=== PATIENT | male | born 1980 | race Caucasian/White ===

== ENCOUNTER 2016-08-03 12:10 | Emergency (ER) | payer OTHER ==
[2016-08-03] MEDS ORDERED: Ketorolac INJ* 60 MG/2 ML VIAL IM ONE (14:16)
[2016-08-03 14:38] VITALS: BP 126/61
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
== END 2016-08-03 14:59 | disposition home or self-care (01) ==
LOC: UCCORT 12:10
DX: M54.5 Low back pain (principal); G89.29 Other chronic pain; G40.909 Epilepsy, unspecified, not intractable, without status epilepticus
CPT/HCPCS: 96372; 99212; G0463; J1885

== ENCOUNTER 2018-02-11 10:58 | Emergency (ER) | payer OTHER ==
--- OUTSIDE RECORDS SUMMARY | 2018-02-11 11:10 | XMS REPORT ---
:1980 External Reference #:[id number] [facility] Address [address], [address] [place] [address] Phone [phone] Care Team Providers Name Role Phone Jensen Vazquez MD Care Team Information Geriatric Assistant Unavailable Jensen Vazquez MD Primary Care Physician Unavailable Payers Type Date Identification Numbers Payment Provider Subscriber Commercial Policy Number: [id number] [employer] Isaiah Neri PayID: [id number] [address] [place] [address] Medigap Part B PayID: [id number] [facility] [address] [place] [address] Problems Date Description Provider Status Onset: 08/21/2013 Spinal stenosis of lumbar region Tracy Herbert RPAC Active Onset: 08/21/2013 Degeneration of lumbar Tracy Herbert RPAC Active intervertebral disc Onset: 07/29/2013 Personality disorder Tracy Herbert RPAC Active Onset: 07/29/2013 Mixed bipolar affective disorder Tracy Herbert RPAC Active Onset: 07/29/2013 Cannabis abuse Tracy Herbert RPAC Active Onset: 07/29/2013 Intermittent explosive outburst Tracy Herbert RPAC Active Onset: 03/13/2011 Tobacco user Tracy Herbert RPAC Active Onset: 03/13/2011 Pilonidal cyst with abscess Tracy Herbert RPAC Active Onset: 01/16/2018 Other seizures Jensen Vazquez MD Active Onset: 01/16/2018 Low back pain Jensen Vazquez MD Active Onset: 01/16/2018 Bipolar disorder Jensen Vazquez MD Active Social History Type Date Description Comments ETOH Use Negative For Denies alcohol use Smoking Heavy tobacco smoker (more than 10 cigarettes/day) Allergies, Adverse Reactions, Alerts Date Description Reaction Status Severity Comments 12/03/2017 Penicillin active 03/13/2011 Penicillins inactive 09/17/2013 Nicotine Contact dermatitis, contact inactive allergy/patch Medications Medication Date Status Form Strength Qnty SIG Indications Ordering Provider Orason 01/16/ Active Capsules 300mg 45caps 1 tab by Other Carbonate 2018 mouth 3 times Provider a day Gabapentin 12/03/ Active Tablets 800mg 120tab 1 tab by Taylor 2018 s mouth four MD Jensen times a day Olanzapine / Active Tablets 2.5mg Take One Unknown 0000 Tablet By Mouth Every Day as Needed No Active 12/03/ Hx Unknown Medications 2018 - 2017 Gabapentin 12/03/ Hx Tablets 800mg 90tabs 1 by mouth Taylor 2018 - qid MD Jensen 2017 Seroquel 12/03/ Hx Tablets 25mg 60tabs 1 by mouth Taylor 2018 - one hour MD Jensen 01/16/ to 2017 sleep, if no improvement in 3 days may try two by mouth as needed up to 4 at night takes 2 a n Omeprazole 10/20/ Hx Capsules 20mg 30caps 1 cap by Pat Solis - DR mouth every Luz Elena 12/03/ day MD va 2017 nausea Tramadol HCL 07/29/ Hx Tablets 50mg 120tab take 2 Irma 2013 - s tablets by Luz Elena 12/03/ mouth in in MD 2017 the morning and at night as needed for pain Reference #: [id number] Fluoxetine / Hx Tablets 20mg 1 by mouth Unknown HCL 0000 - every day 2017 Vital Signs Date Vital Result Comment 01/16/2018 BP Systolic 128 mmHg BP Diastolic 80 mmHg Body Temperature 98.0 F Heart Rate 87 /min Height 67 inches 5'7" Weight 173.12 lb BMI (Body Mass Index) 27.1 kg/m2 BSA (Body Surface Area) 1.90 m2 Alderson body weight in kilograms 67 O2 % BldC Oximetry 95 % Pain Level 0 12/03/2017 BP Systolic Sitting Left Arm 122 mmHg BP Diastolic Sitting Left Arm 82 mmHg Body Temperature 98.0 F Heart Rate 100 /min Height 67 inches 5'7" Weight 158.38 lb BMI (Body Mass Index) 24.8 kg/m2 BSA (Body Surface Area) 1.83 m2 Alderson body weight in kilograms 67 10/20/2013 BP Systolic 122 mmHg BP Diastolic 66 mmHg Height 66 inches 5'6" Weight 166.00 lb 09/17/2013 BP Systolic 130 mmHg Height 68 inches 5'8" Weight 167.00 lb 09/17/2013 BP Systolic 132 mmHg BP Diastolic 72 mmHg Height 68 inches 5'8" Weight 167.00 lb 09/17/2013 Body Temperature 97.7 F Heart Rate 66 /min Respiratory Rate 16 /min 08/06/2013 BP Systolic 112 mmHg BP Diastolic 70 mmHg Height 68 inches 5'8" Weight 156.00 lb 03/13/2011 BP Systolic 97 mmHg BP Diastolic 4 mmHg 03/13/2011 BP Systolic 138 mmHg BP Diastolic 70 mmHg Height 68 inches 5'8" Weight 158.00 lb Results Test Date Test Result H/L Range Note CBC W/Automated Diff 12/03/2017 White Blood Count 6.9 K/uL 3.4-10.5 1 Red Blood Count 4.88 M/uL 4.20-5.80 1 Hemoglobin 14.7 gm/dL 12.8-17.0 1 Hematocrit 43.8 % 38.0-48.0 1 Mean Cell Volume 89.8 fl 80.0-96.0 1 Mean Corpuscular HGB 30.1 pg 27.0-33.0 1 Mean Corpuscular HGB Conc 33.6 g/dL 31.7-36.0 1 Platelet Count 164 K/uL 155-360 1 Red Cell Distri Width SD 43.8 fl 36-51 1 Red Cell Distri Width %CV 13.6 % 11.6-15.8 1 Mean Platelet Volume 11.8 fL High 6.6-10.6 1 Neut% 58.3 % 33.0-73.0 1 Lymph % 31.4 % 20.0-42.0 1 [place] % 9.3 % 0.0-10.0 1 Eo% 0.9 % 0.0-6.6 1 Bas% 0.1 % 0.0-1.1 1 Neut# 4.02 K/uL 1.8-7.0 1 Lymph # 2.17 K/uL 1.0-4.0 1 [place] # 0.64 K/uL 0.0-0.8 1 Eos # 0.06 K/uL 0.0-0.5 1 Baso # 0.01 K/uL 0.0-0.1 1 Comprehensive Metabolic Panel 12/03/2017 Glucose 93 mg/dL 74-106 1 BUN 11 mg/dL 7-18 1 Creatinine 0.9 mg/dL 0.6-1.3 1 Glom Filtration Rate, Estimate >60 mL/min >60 1 If >60 mL/min >60 1, 2 BUN/Creat 12.2 ratio 1 Sodium 142 mmol/L 136-145 1 Potassium 4.0 mmol/L 3.5-5.1 1 Chloride 109 mmol/L High 98-107 1 Carbon Dioxide 29 mmol/L 21-32 1 Anion Gap 4 mEq/L Low 8-16 1 Calcium 9.8 mg/dL 8.5-10.1 1 Total Protein 8.8 g/dL High 6.4-8.2 1 Albumin 4.7 g/dL 3.4-5.0 1 Globulin 4.1 g/dL 1.9-4.3 1 Alb/Glob 1.1 ratio 1 Bilirubin,Total 0.6 mg/dL 0.2-1.0 1 Sgot/Ast 15 U/L 15-37 1 SGPT/Alt 23 U/L 12-78 1 Alkaline Phosphatase 71 U/L 45-117 1 LDL Cholesterol Profile 12/03/2017 Cholesterol 265 mg/dL High <200 1, 3 Triglycerides 74 mg/dL <150 1, 4 HDL Cholesterol 56 mg/dL >40 1, 5 LDL-Cholesterol 194 mg/dL < 100 1, 6 Glycohemoglobin A1c 12/03/2017 Glycohemoglobin (A1c) 5.1 % 4.2-6.3 1, 7 eAG 100 mg/dL 1 Laboratory test finding 09/09/2013 Throat Strep Screen See Note 8 LDL Cholesterol Profile 05/01/2011 Cholesterol 157 mg/dL 120-200 HDL Cholesterol 53 mg/dL 29-83 LDL-Cholesterol 87 mg/dL 62-185 Triglycerides 86 mg/dL 16-231 Comprehensive Metabolic Panel 05/01/2011 Alb/Glob 1.1 ratio Albumin 3.6 g/dL 3.5-5.0 Alkaline Phosphatase 48 U/L Low 50-136 Anion Gap 14 mEq/L 8-16 BUN 10 mg/dL 5-23 BUN/Creat 12.5 ratio Bilirubin,Total 0.5 mg/dL 0.2-1.2 Calcium 8.8 mg/dL 8.5-10.1 Carbon Dioxide 27 mEq/L 18-29 Chloride 107 mmol/L 98-107 Creatinine 0.8 mg/dL 0.5-1.4 Globulin 3.3 g/dL 1.9-4.3 Glom Filtration Rate, Estimate >60 mL/min >60 Glucose 92 mg/dL 76-115 If >60 mL/min >60 9 Potassium 3.9 mmol/L 3.5-5.1 SGPT/Alt 17 U/L Low 30-65 Sgot/Ast 13 U/L Low 16-40 Sodium 144 mmol/L 136-145 Total Protein 6.9 g/dL 6.3-8.0 CBC W/Automated Diff 05/01/2011 Bas% 0.6 % 0.1-1.0 Baso # 0.04 K/uL Low 0.1-0.2 Eo% 2.0 % 0.0-5.0 Eos # 0.13 K/uL 0.0-0.5 Hematocrit 43.6 % 38.0-48.0 Hemoglobin 14.5 gm/dL 12.8-17.0 Lymph # 1.74 K/uL 1.2-4.0 Lymph % 26.4 % 17.0-56.0 Mean Cell Volume 91.0 fl 80.0-96.0 Mean Corpuscular HGB 30.3 pg 27.0-33.0 Mean Corpuscular HGB Conc 33.3 g/dL 31.7-36.0 Mean Platelet Volume 10.6 fL 6.6-10.6 [place]nee # 0.80 K/uL High 0.0-0.6 [place] % 12.1 % High 0.0-10.0 Neut# 3.89 K/uL 1.8-7.0 Neut% 58.9 % 33.0-73.0 Platelet Count 153 K/uL 150-400 Red Blood Count 4.79 M/uL 4.20-5.80 Red Cell Distri Width %CV 13.6 % 11.6-15.8 Red Cell Distri Width SD 44.5 fl 36-51 White Blood Count 6.6 K/uL 3.4-10.5 Laboratory test finding 05/01/2011 Free T4 0.80 ng/dL 0.71-1.85 Rapid Plasma Reagin Nonreactive Nonreactive 10 Thyroid Stim Hormone 1.71 uIU/mL 0.49-4.67 Laboratory test 04/30/2011 Orason < 0.20 mmol/L Low 0.60-1.20 finding Laboratory test 04/30/2011 Amphetamines (Urine) Negative finding Barbiturates (Urine) Negative Benzodiazepines (Urine) Negative Cannabinoids (Urine) Positive High Cocaine Metabolite (Urine) Negative Ethyl Alcohol < 3.0 mg/dL 0.0- Methadone (Urine) Negative Opiates (Urine) Negative Please Note # 11 Urine Cutoffs * 12 Laboratory test finding 03/24/2011 Amphetamines (Urine) Negative Barbiturates (Urine) Negative Benzodiazepines (Urine) Negative Cannabinoids (Urine) Positive High Cocaine Metabolite (Urine) Negative Lipase 109 U/L 28-380 Methadone (Urine) Negative Opiates (Urine) Negative Please Note # 13 Urine Cutoffs * 14 Basic Metabolic Panel 03/24/2011 Anion Gap 10 mEq/L 8-16 BUN 8 mg/dL 5-23 BUN/Creat 10.0 ratio Calcium 9.3 mg/dL 8.5-10.1 Carbon Dioxide 25 mEq/L 18-29 Chloride 110 mmol/L High 98-107 Creatinine 0.8 mg/dL 0.5-1.4 Glom Filtration Rate, Estimate >60 mL/min >60 Glucose 83 mg/dL 76-115 If >60 mL/min >60 15 Potassium 3.9 mmol/L 3.5-5.1 Sodium 141 mmol/L 136-145 CBS W/Automated Diff 03/24/2011 Hematocrit 43.6 % 38.0-48.0 Hemoglobin 14.7 gm/dL 12.8-17.0 Mean Cell Volume 89.3 fl 80.0-96.0 Mean Corpuscular HGB 30.1 pg 27.0-33.0 Mean Corpuscular HGB Conc 33.7 g/dL 31.7-36.0 Mean Platelet Volume 10.7 fL High 6.6-10.6 Platelet Count 177 K/uL 150-400 Red Blood Count 4.88 M/uL 4.20-5.80 Red Cell Distri Width %CV 13.4 % 11.6-15.8 Red Cell Distri Width SD 42.7 fl 36-51 White Blood Count 5.0 K/uL 3.4-10.5 Differential-WBC Confirm 03/24/2011 Atypical Lymph% 1 % 0-7 Band% 12 % High 0-8 Basophil% 1 % 0-2 Lymph% 26 % 17-56 Monocyte% 6 % 0-10 Neutrophils% 54 % 33-73 Platelet Estimate Normal RBC Morphology Normal Total Cells Counted 100 #CELLS Liver Function Tests 03/24/2011 Alb/Glob 1.1 ratio Albumin 4.0 g/dL 3.5-5.0 Alkaline Phosphatase 49 U/L Low 50-136 Bilirubin,Direct 0.1 mg/dL 0.1-0.4 Bilirubin,Indirect 0.6 mg/dL 0.0-0.9 Bilirubin,Total 0.7 mg/dL 0.2-1.2 Globulin 3.8 g/dL 1.9-4.3 SGPT/Alt 44 U/L 30-65 Sgot/Ast 33 U/L 16-40 Total Protein 7.8 g/dL 6.3-8.0 1 Z00.01 2 Note: Persistent reduction for 3 months or more in an eGFR <60 mL/min/1.73 m2 defines CKD. Patients with eGFR values >/=60 mL/min/1.73 m2 may also have CKD if evidence of persistent proteinuria is present. The original MDRD equation for estimated GFR is not valid for patients less than 18 years of age. Additional information may be found at www.kdoqi.org. 3 Reference Guidelines*: Desirable: ........... < 200 mg/dL Borderline High: ..... 200-239 mg/dL High: ................ >=240 mg/dL * The National Cholesterol Education Program (NCEP) 4 Reference Guidelines*: Normal: ............. < 150 mg/dL Borderline High: .... 150-199 mg/dL High: ............... 200-499 mg/dL Very High: .......... > 500 mg/dL * Source: National Cholesterol Education Program (NCEP) 5 Reference Guidelines*: Low HDL: ..... < 40 mg/dL Normal: ..... 40-60 mg/dL Desirable: ... > 60 mg/dL *The National Cholesterol Education Program(NCEP) 6 Reference Guidelines*: Optimal:........... <100 mg/dL Near Optimal....... 100-129 mg/dL Borderline High.... 130-159 mg/dL High............... 160-189 mg/dL Very High.......... >=190 mg/dL * Source: National Cholesterol Education Program (NCEP) 7 Elevated levels of HbA1c suggest the need for more aggressive treatment of glycemia. The [place] Diabetes Association recommends that a primary goal of therapy should be a HbA1c of <7% and that physicians should re-evaluate the treatment regimen in patients with HbA1c values consistently >8%. 8 Organism 1 ! BETA HEMOLYTIC STREP NON A QUANTITY ! MODERATE 9 Note: Persistent reduction for 3 months or more in an eGFR <60 mL/min/1.73 m2 defines CKD. Patients with eGFR values >/=60 mL/min/1.73 m2 may also have CKD if evidence of persistent proteinuria is present. The original MDRD equation for estimated GFR is not valid for patients less than 18 years of age. Additional information may be found at www.kdoqi.org. 10 PENDING; TEST PERFORMED ON MONDAYS AND THURSDAYS 11 #THIS URINE SPECIMEN SCREENED POSITIVE FOR ONE OF MORE DRUG CLASSES. POSITIVE FINDINGS ARE UNCONFIRMED. CONFIRMATORY TESTING IS SUGGESTED IF FINDINGS ARE UNEXPECTED. PLEASE CONTACT THE LABORATORY IF CONFIRMATORY TESTING IS DESIRED. 12 *THE SUBMITTED URINE SPECIMEN WAS SCREENED AT THE LISTED CUTOFFS DRUG CLASS INITIAL TEST LEVEL Amphetamines 1000 ng/mL Barbiturates 200 ng/mL Benzodiazepines 200 ng/mL Cannabinoids 50 ng/mL Cocaine Metabolite 300 ng/mL Methadone 300 ng /mL Opiates 300 ng/mL 13 #THIS URINE SPECIMEN SCREENED POSITIVE FOR ONE OF MORE DRUG CLASSES. POSITIVE FINDINGS ARE UNCONFIRMED. CONFIRMATORY TESTING IS SUGGESTED IF FINDINGS ARE UNEXPECTED. PLEASE CONTACT THE LABORATORY IF CONFIRMATORY TESTING IS DESIRED. 14 *THE SUBMITTED URINE SPECIMEN WAS SCREENED AT THE LISTED CUTOFFS DRUG CLASS INITIAL TEST LEVEL Amphetamines 1000 ng/mL Barbiturates 200 ng/mL Benzodiazepines 200 ng/mL Cannabinoids 50 ng/mL Cocaine Metabolite 300 ng/mL Methadone 300 ng /mL Opiates 300 ng/mL 15 Note: Persistent reduction for 3 months or more in an eGFR <60 mL/min/1.73 m2 defines CKD. Patients with eGFR values >/=60 mL/min/1.73 m2 may also have CKD if evidence of persistent proteinuria is present. The original MDRD equation for estimated GFR is not valid for patients less than 18 years of age. Additional information may be found at www.kdoqi.org. Procedures Date CPT Code Description Status 02/10/2015 40352 Echocardiogram Complete Completed 04/14/2014 92297 Event Monitor Inter/Review Only Completed 04/06/2014 28018 Echocardiogram Complete Completed 03/03/2014 84265 Holter Monitor 24HR Inter/Report Completed Encounters Type Date Location Provider CPT E/M Dx Office Visit 01/16/2018 10:15a [facility] [place] [id number] G40.89 F31.9 M54.5 Office Visit 12/16/2008 2:15p [facility] [place], [address] 924.10 Plan of Care Future Appointment(s):03/05/2018 8:30 am - Jensen Vazquez MD at [facility] - Jensen Vazquez MDG40.89 Other seizuresReferral:Pallavi Aguilar MD, [id number] Bipolar disorder, [id number] Low back pain
--- NOTE | 2018-02-11 21:10 | UC ---
Course/Dx - Diagnoses Provider Diagnoses: Patient left without being seen Discharge - Sign-Out/Discharge Documenting (check all that apply): Post-Discharge Follow Up All imaging exams completed and their final reports reviewed: No Studies - Discharge Plan Disposition: LEFT WITHOUT BEING SEEN Referrals: Jensen Vazquez MD [Primary Care Provider] - - Billing Disposition and Condition Disposition: Left Without Being Seen
== END 2018-02-11 13:02 | disposition left against medical advice (07) ==
LOC: UCCORT 10:58
DX: M25.572 Pain in left ankle and joints of left foot (principal); Z53.21 Procedure and treatment not carried out due to patient leaving prior to being seen by health care provider